=== PATIENT | male | born 2000 | race Caucasian/White ===

== ENCOUNTER 2020-06-24 16:25 | Emergency (ER) | payer MEDICAID, SELFPAY ==
[~2020-06-24] VITALS: Ht 188 cm; Wt 75.4 kg
--- NOTE | 2020-06-24 16:40 | NUR ---
Pt presents to ER with c/o R lower face abscess x3-4 days. Pt reports small amount of purulent drainage.
--- NOTE | 2020-06-24 17:53 | NUR ---
Zenia MISHRA at bedside to evaluate pt.
[2020-06-24] MEDS ORDERED: IBUPROFEN 800 MG TABLET ONE (18:15)
[2020-06-24] MEDS ORDERED: IBUPROFEN 800 MG TABLET PO ONE (18:30)
== END 2020-06-24 18:20 | disposition home or self-care (01) ==
LOC: ED 16:35
DX: L03.211 Cellulitis of face (principal); F17.200 Nicotine dependence, unspecified, uncomplicated
CPT/HCPCS: 99283

== ENCOUNTER 2020-06-27 14:25 | Emergency (ER) | payer MEDICAID ==
[~2020-06-27] VITALS: Ht 190.5 cm; Wt 77.0 kg
[2020-06-27 14:28] VITALS: BP 118/67
--- NOTE | 2020-06-27 14:45 | NUR ---
Pt to room from lobby.
--- NOTE | 2020-06-27 15:39 | NUR ---
Dahlia MISHRA at [facility] to evaluate pt.
[2020-06-27] MEDS ORDERED: LIDOCAINE 1%, 10ML INFIL ONE (16:00)
[2020-06-27] MEDS ORDERED: LIDOCAINE-MPF 1%, 5ML ONE (16:13)
[2020-06-27] MEDS ORDERED: HYDROcodone/APAP 10/325 MG TABLET ONE (16:46)
[2020-06-27] MEDS ORDERED: HYDROcodone/APAP 5/325 TABLET ONE (16:49)
[2020-06-27] MEDS ORDERED: HYDROcodone/APAP 5/325 TABLET PO ONE (17:00)
== END 2020-06-27 17:02 | disposition home or self-care (01) ==
LOC: ED 16:30
DX: L02.01 Cutaneous abscess of face (principal); L03.211 Cellulitis of face; F17.200 Nicotine dependence, unspecified, uncomplicated
CPT/HCPCS: 10060; 99282; 99284

== ENCOUNTER 2020-08-06 17:17 | Emergency (ER) | payer MEDICAID ==
[~2020-08-06] VITALS: Ht 190.5 cm; Wt 76.5 kg
--- NOTE | 2020-08-06 17:25 | NUR ---
PT REMOVED OF ALL BELONINGS, WALLET, CLOTHES, BACK BACK AND CELL PHONE PLACED WITH CLOTHING IN 2 DIFFERENT BAGS.
[2020-08-06] MEDS ORDERED: ONDANSETRON 2MG/ML, 2ML IVPush ONE (17:30)
[2020-08-06] MEDS ORDERED: PLEASE ENTER HEIGHT AND WEIGHT MC SCH (17:30)
[2020-08-06] MEDS ORDERED: MORPHINE SULFATE 4 MG/ML, 1ML IVPush ONE (17:30)
--- NOTE | 2020-08-06 17:41 | NUR ---
REC PT REPORT PT TO CT AT THIS TIME
[2020-08-06 18:15] LABS: BASOPHILS % (AUTO) 0 % (0-1); EOSINOPHILS % (AUTO) 1 % (1-7); LYMPHOCYTES % (AUTO) 12 % (22-44); MEAN CORPUSCULAR HEMOGLOBIN 30.6 pg (27.5-34.5); MEAN CORPUSCULAR HGB CONC 34.3 g/dL (33.2-36.2); MONOCYTES % (AUTO) 17 % (2-9); NEUTROPHILS % (AUTO) 70 % (42-75); PLATELET COUNT 165 x10^3/uL (130-400); RED BLOOD COUNT 4.55 x10^6/uL (4.38-5.82); RED CELL DISTRIBUTION WIDTH 14.1 % (9.4-14.8)
[2020-08-06] MEDS ORDERED: ONDANSETRON 2MG/ML, 2ML ONE (18:15)
[2020-08-06] MEDS ORDERED: MORPHINE SULFATE 4 MG/ML, 1ML ONE (18:15)
[2020-08-06 18:21] LABS: ALBUMIN 3.5 g/dL (3.4-5.0); ANION GAP 6 mmol/L (5-15); CALCIUM 8.2 mg/dL (8.5-10.1); CHLORIDE 108 mmol/L (98-107); SALICYLATE LEVEL 2.5 mg/dL (2.8-20.0)
[2020-08-06 18:25] LABS: ALANINE AMINOTRANSFERASE 25 U/L (12-78); ALKALINE PHOSPHATASE 62 U/L (45-117); BILIRUBIN,TOTAL 0.7 mg/dL (0.2-1.0); CREATININE 1.01 mg/dL (0.7-1.3); TOTAL PROTEIN 6.2 g/dL (6.4-8.2)
[2020-08-06 18:31] LABS: MD NO
--- NOTE | 2020-08-06 18:38 | NUR ---
PT AWARE OF THE NEED FOR URINE
--- NOTE | 2020-08-06 18:44 | NUR ---
PT TO HAVE A TELE PSY EVAL RE SI STATEMENTS MADE TO THE ERPA
--- NOTE | 2020-08-06 19:10 | NUR ---
REPORT FROM EDE MCGEE
--- NOTE | 2020-08-06 19:47 | NUR ---
TP RN: SPOKE WILL HUMBERTO FROM [facility] NO MALE BED AVAILABLE, PSYCH INSIDE [employer]IVE UPDATED, [facility] HAS BED IS CHECKING PT INSURANCE AT THIS TIME
--- NOTE | 2020-08-06 20:07 | NUR ---
SPOKE WITH NANCY FROM [facility], WILL ACCEPT PT AFTER UDS AND NEGATIVE COVID
--- NOTE | 2020-08-06 20:45 | NUR ---
PT UNABLE TO URINATE, GIVEN WATER. COVID SWAB COLLECTED AND WALKED TO LAB
--- NOTE | 2020-08-06 21:48 | NUR ---
Covering cynthia for break, pt ademently refusing a straight cath. IVF started and increase po fluids. Pt states he will provide urine sample as soon as he feels urge to pee.
--- NOTE | 2020-08-06 21:51 | NUR ---
Silvia remains in line of site.
--- NOTE | 2020-08-06 22:56 | NUR ---
ua collected and walked to lab
[2020-08-06 23:29] LABS: AMPHETAMINE SCREEN, URINE Negative (Negative); BARBITURATE SCREEN, URINE Negative (Negative); BENZODIAZEPINE SCREEN, URINE Negative (Negative); CANNABINOID SCREEN, URINE Positive (Negative); COCAINE SCREEN, URINE Negative (Negative); METHADONE SCREEN, URINE Negative (Negative); OPIATE SCREEN, URINE Positive (Negative)
--- NOTE | 2020-08-07 00:05 | NUR ---
report given to jose graham
[2020-08-07 00:06] VITALS: BP 119/66
== END 2020-08-07 00:18 | disposition home or self-care (01) ==
LOC: ED 18:25
DX: S02.2XXA Fracture of nasal bones, initial encounter for closed fracture (principal); S09.90XA Unspecified injury of head, initial encounter; Z20.822 Contact with and (suspected) exposure to COVID-19; R45.851 Suicidal ideations; F12.10 Cannabis abuse, uncomplicated; F17.210 Nicotine dependence, cigarettes, uncomplicated; Z76.0 Encounter for issue of repeat prescription; X83.8XXA Intentional self-harm by other specified means, initial encounter; Y93.89 Activity, other specified; Y92.89 Other specified places as the place of occurrence of the external cause; Y99.8 Other external cause status
CPT/HCPCS: 36415; 70450; 70486; 80053; 80299; 80307; 80320; 80329; 85025; 87426; 96374; 96375; 99285; J2270; J2405; G0480

== ENCOUNTER 2020-08-07 00:02 | Inpatient (IN) | payer MEDICAID ==
[~2020-08-07] VITALS: Ht 190.5 cm; Wt 58.9 kg
[2020-08-07] MEDS ORDERED: POLYETHYLENE GLYCOL 17 GM PACKET PO PRN (01:00)
[2020-08-07] MEDS ORDERED: BISACODYL 10 MG SUPP PR PRN (01:00)
[2020-08-07] MEDS ORDERED: ACETAMINOPHEN 325 MG TABLET PO PRN (01:00)
[2020-08-07] MEDS ORDERED: IBUPROFEN 200 MG TABLET PO PRN (01:00)
[2020-08-07] MEDS ORDERED: DOCUSATE 100 MG CAPSULE PO PRN (01:00)
[2020-08-07] MEDS ORDERED: ONDANSETRON ODT 4 MG PO PRN (01:00)
[2020-08-07 03:51] VITALS: BP 120/86
[2020-08-07 07:41] VITALS: BP 120/69
[2020-08-07] MEDS ORDERED: OLANZAPINE 10 MG INJ IM ONE (07:56)
[2020-08-07] MEDS ORDERED: OLANZAPINE 10 MG INJ IM STA (07:56)
[2020-08-07 08:22] LABS: CHOL/HDL RATIO 2.3; FREE T4 (FREE THYROXINE) 1.04 ng/dL (0.76-1.46); LDL/HDL RATIO 0.9 (0.5-3.0)
[2020-08-07] MEDS ORDERED: NICOTINE 21 MG/24 HR PATCH.TD24 TD SCH (09:00)
[2020-08-07] MEDS ORDERED: OLANZAPINE 10 MG INJ IM PRN (10:00)
[2020-08-07] MEDS: NICOTINE 21 MG/24 HR PATCH.TD24 TD SCH (12:00)
[2020-08-07] MEDS: TRAZODONE 100MG TABLET PO PRN (20:07)
[2020-08-07] MEDS: OLANZAPINE 5 MG TABLET PO SCH (20:07)
[2020-08-07 20:19] VITALS: BP 118/71
[2020-08-08] MEDS: NICOTINE 21 MG/24 HR PATCH.TD24 TD SCH (08:19)
[2020-08-08] MEDS ORDERED: FLU VACC QS2020-21(6MOS UP)/PF 60MCG/0.5 ML SYR IM ONE (09:00)
[2020-08-08 19:30] VITALS: BP 112/67
[2020-08-08] MEDS: TRAZODONE 100MG TABLET PO PRN (20:11)
[2020-08-08] MEDS: OLANZAPINE 5 MG TABLET PO SCH (20:11)
[2020-08-09 07:51] VITALS: BP 117/79
[2020-08-09] MEDS: NICOTINE 21 MG/24 HR PATCH.TD24 TD SCH (08:11)
[2020-08-09] MEDS ORDERED: NICO-587 TD (13:54)
[2020-08-09] MEDS ORDERED: OLAN5TAB9 PO (13:54)
[2020-08-09] MEDS ORDERED: TRAZ-175 PO (13:54)
== END 2020-08-09 14:13 | disposition home or self-care (01) | DRG 885 ==
LOC: 3E 00:32
PROVIDERS: ADMIT Psychiatry & Neurology Psychosomatic Medicine; ATTEND Psychiatry & Neurology Psychosomatic Medicine
DX: F31.60 Bipolar disorder, current episode mixed, unspecified (principal); F12.10 Cannabis abuse, uncomplicated; F29 Unspecified psychosis not due to a substance or known physiological condition; S00.83XA Contusion of other part of head, initial encounter; F17.210 Nicotine dependence, cigarettes, uncomplicated; F43.10 Post-traumatic stress disorder, unspecified; X58.XXXA Exposure to other specified factors, initial encounter; G47.00 Insomnia, unspecified; Z79.899 Other long term (current) drug therapy; Z79.891 Long term (current) use of opiate analgesic; Y93.9 Activity, unspecified; Y92.89 Other specified places as the place of occurrence of the external cause; Y99.8 Other external cause status; Z88.8 Allergy status to other drugs, medicaments and biological substances; Z59.0 Homelessness
CPT/HCPCS: 36415; 80061; 82607; 84439; 84443; 90686

== ENCOUNTER 2020-08-19 17:22 | Emergency (ER) | payer MEDICAID ==
[~2020-08-19] VITALS: Ht 190.5 cm; Wt 76.0 kg
[~2020-08-19 17:22] MED LIST: NICO-587 TD; OLAN5TAB9 PO; TRAZ-175 PO
--- NOTE | 2020-08-19 17:43 | NUR ---
pt biba for SI, report taken from ems. discharged from [facility] unit recently for same complaint. plan is to overdose of bottle of pills or shoot self with gun, pt has no access to a gun. pt has no recent SI attempt. pt belongings (including skateboard) bagged, labeled and put in locker for safekeeping. pt undressed completely, dressed in gown and hospital underwear. pt a&o, resps even and unlabored, room secure, EDPA at bedside for initial assessment.
[2020-08-19] MEDS ORDERED: OLANZAPINE 10 MG INJ IM PRN (18:30)
[2020-08-19 18:38] LABS: BASOPHILS % (AUTO) 1 % (0-1); EOSINOPHILS % (AUTO) 1 % (1-7); LYMPHOCYTES % (AUTO) 16 % (22-44); MEAN CORPUSCULAR HEMOGLOBIN 30.4 pg (27.5-34.5); MEAN CORPUSCULAR HGB CONC 34.3 g/dL (33.2-36.2); MEAN PLATELET VOLUME 6.7 fL (7.4-10.4); MONOCYTES % (AUTO) 8 % (2-9); NEUTROPHILS % (AUTO) 74 % (42-75); PLATELET COUNT 298 x10^3/uL (130-400); RED BLOOD COUNT 4.49 x10^6/uL (4.38-5.82); RED CELL DISTRIBUTION WIDTH 13.8 % (9.4-14.8)
[2020-08-19 18:39] LABS: MD NO
[2020-08-19 18:41] LABS: ALBUMIN 3.3 g/dL (3.4-5.0); ANION GAP 5 mmol/L (5-15); CHLORIDE 105 mmol/L (98-107)
[2020-08-19 18:45] LABS: ALANINE AMINOTRANSFERASE 25 U/L (12-78); ALKALINE PHOSPHATASE 60 U/L (45-117); BILIRUBIN,TOTAL 0.1 mg/dL (0.2-1.0); CREATININE 0.93 mg/dL (0.7-1.3); SALICYLATE LEVEL 2.7 mg/dL (2.8-20.0); TOTAL PROTEIN 6.3 g/dL (6.4-8.2)
--- NOTE | 2020-08-19 19:00 | NUR ---
report given at bedside to EVERARDO Lazaro. pt is a&o, resps even and unlabored, nadn.
[2020-08-19 19:05] LABS: MICROSCOPIC AUTO
[2020-08-19] MEDS ORDERED: olanzapine PO (19:09)
[2020-08-19 19:17] LABS: AMPHETAMINE SCREEN, URINE Negative (Negative); BARBITURATE SCREEN, URINE Negative (Negative); CANNABINOID SCREEN, URINE Positive (Negative); METHADONE SCREEN, URINE Negative (Negative); OPIATE SCREEN, URINE Negative (Negative)
[2020-08-19 19:18] LABS: BENZODIAZEPINE SCREEN, URINE Negative (Negative); COCAINE SCREEN, URINE Negative (Negative)
--- NOTE | 2020-08-19 19:26 | NUR ---
PT PROVIDED MEAL FROM [employer]. PT RESTING ON GURNEY, NO ACUTE DISTRESS.
[2020-08-19 19:47] VITALS: BP 118/62
[2020-08-19] MEDS ORDERED: OLANZAPINE 5 MG TABLET PO SCH (21:00)
[2020-08-19] MEDS ORDERED: TRAZODONE 100MG TABLET PO SCH (21:00)
--- NOTE | 2020-08-19 21:20 | NUR ---
TP RN: PACKET FACKED TO [facility], [facility], [facility], [facility]. PT DENIES BY [facility].
--- NOTE | 2020-08-19 21:54 | NUR ---
REPORT TO LULU AT [facility]. SHE SAYS TO HOLD PO MEDICATIONS FOR NOW.
--- NOTE | 2020-08-19 21:54 | NUR ---
PT ACCEPTED AT [facility] UNDER CARE OF DR GIRALDO. PHONE REPORT WAS GIVEN TO LULU
--- NOTE | 2020-08-19 22:44 | NUR ---
[facility] TO TRANSPORT PT TO [place]. ALL PT BELONGINGS GIVEN TO EMS.
== END 2020-08-19 22:48 ==
LOC: ED 18:42
DX: R45.851 Suicidal ideations (principal); F32.9 Major depressive disorder, single episode, unspecified; F17.210 Nicotine dependence, cigarettes, uncomplicated
CPT/HCPCS: 36415; 80053; 80143; 80179; 80307; 80320; 81001; 85025; 99285; G0480